=== PATIENT | male | born 1970 | race African-American/Black ===

== ENCOUNTER 2017-12-21 15:07 | Emergency (ER) | payer OTHER ==
[2017-12-21 15:15] VITALS: BMI 40.1
[2017-12-21] MEDS ORDERED: IBUPROFEN 400 MG TABLET (FP) PO ONE ×2 (16:52→16:59)
--- NOTE | 2017-12-21 16:55 | PDOC ---
History of Present Illness - General History Source: Patient Exam Limitations: No Limitations - History of Present Illness Initial Comments: 12/21/17 17:04 The patient is a 47 year old male with history of hypertension and hyperlipidemia who presents to the ED complaining of diffuse left sided pain that began today s/p mechanical fall. The patient reports he was in the attic at work today when the ceiling fell out below him and he fell a height of one story. The patient reports he fell on his left side. He complains of diffuse left sided pain that is significantly worse at the left ankle. He also complains of mild right ankle pain. He reports walking and bearing weight is difficult secondary to pain. The patient also reports hitting his head. He does complain of neck pain that is worse with turning. He denies headache, blurred vision, numbness, tingling, or focal weakness. He also complains of left shoulder pain that is worse with overhead motion. He denies any back pain. The patient denies nausea, vomiting, or diarrhea. <Allison Rodriguez - Last Filed: 12/21/17 18:12> <Yunior Allen - Last Filed: 12/21/17 19:49> - General Chief Complaint: Injury Stated Complaint: FELL Time Seen by Provider: 12/21/17 16:21 Past History <Allison Rodriguez - Last Filed: 12/21/17 18:12> - Past Medical History COPD: No HTN: Yes Hypercholesterolemia: Yes - Suicide/Smoking/Psychosocial Hx Smoking Status: No Smoking History: Never smoked Number of Cigarettes Smoked Daily: 0 Cigars Per Day: 1 Information on smoking cessation initiated: No Substance Use Type: Marijuana <Yunior Allen - Last Filed: 12/21/17 19:49> - Past Medical History Allergies/Adverse Reactions: Allergies Allergy/AdvReac Type Severity Reaction Status Date / Time No Known Allergies Allergy Verified 12/21/17 15:15 Home Medications: Ambulatory Orders No Home Medications 0 dose .ROUTE UTDICT 10/05/13 Naproxen 500 mg PO BID PRN #20 tablet 12/21/17 Review of Systems - Review of Systems Constitutional: No: Chills, Fever HEENTM: No: Recent change in vision Respiratory: No: Cough, Shortness of Breath Cardiac (ROS): No: Chest Pain ABD/GI: No: Nausea, Vomiting Musculoskeletal: Yes: Joint Pain, Muscle Pain Neurological: No: Headache, Paresthesia, Ataxia All Other Systems: Reviewed and Negative <Yunior Allen - Last Filed: 12/21/17 19:49> *Physical Exam - Vital Signs Last Vital Signs Temp Pulse Resp BP Pulse Ox 97 F L 103 H 20 138/101 99 12/21/17 15:08 12/21/17 15:08 12/21/17 15:08 12/21/17 15:08 12/21/17 15:08 - Physical Exam Comments: 12/21/17 17:58 General: Patient is alert and in no acute distress. Speech is clear and appropriate. Seated comfortably and conversant. Head: Atraumatic and nontender. HEENT: Pupils are equal round and reactive to light, extraocular movements are intact. The tympanic membranes are clear, no hemotympanum. No facial deformity/ tenderness, no septal hematoma. The oropharynx is clear. Neck: The trachea is midline, there is no stridor. There is no midline cervical spine tenderness, full range of motion of neck. Chest: Nontender, no ecchymosis or abrasions. Heart: S1-S2, regular rate and rhythm. No murmurs. Lungs: Clear to auscultation bilaterally. Symmetric chest rise. Abdomen: Soft/nontender/nondistended. Bowel sounds are normal. There is no abdominal or flank ecchymosis. Back/Pelvis: There is no midline spine tenderness or step-off. Pelvis is stable and nontender. Extremities: LLE: +Some soft tissue swelling in ther anterior medial left ankle joint space without focal bony tenderness or deformity in the ankle or foot with full ROM, neurovascularly intact distally. All other extremities: There is no extremity deformity or joint swelling. No focal bony tenderness throughout. 2+ distal pulses throughout. Neuro: Alert and oriented x3. Cranial nerves II through XII are intact. 5 out of 5 motor strength x4 extremities. [id number] is intact. No pronator drift. Gait is stable. Skin: +Superficial abrasions to the inner aspects of the upper extremities, bilaterally. Psych: Affect is appropriate. <Allison Rodriguez - Last Filed: 12/21/17 18:12> - Vital Signs Last Vital Signs Temp Pulse Resp BP Pulse Ox 97 F L 103 H 20 138/101 99 12/21/17 15:08 12/21/17 15:08 12/21/17 15:08 12/21/17 15:08 12/21/17 15:08 <Yunior Allen - Last Filed: 12/21/17 19:49> ED Treatment Course - Medications Given in the ED: ED Medications Discontinued Medications Generic Name Dose Route Start Last Admin Trade Name Freq PRN Reason Stop Dose Admin Oxycodone/Acetaminophen 1 combo 12/21/17 16:25 12/21/17 16:30 Percocet 5/325 - PO 12/21/17 16:26 1 combo ONCE ONE Administration <Allison Rodriguez - Last Filed: 12/21/17 18:12> - RADIOLOGY Radiology Studies Ordered: Category Date Time Status ANKLE & FOOT-LEFT* [RAD] Stat Radiology 12/21/17 16:52 Ordered - Medications Given in the ED: ED Medications Discontinued Medications Generic Name Dose Route Start Last Admin Trade Name Freq PRN Reason Stop Dose Admin Oxycodone/Acetaminophen 1 combo 12/21/17 16:25 12/21/17 16:30 Percocet 5/325 - PO 12/21/17 16:26 1 combo ONCE ONE Administration <Yunior Allen - Last Filed: 12/21/17 19:49> Medical Decision Making - Medical Decision Making 12/21/17 17:31 A portion of this note was documented by scribe services under my direction. I have reviewed the details of the note, within reason, and agree with the documentation with the following case summary and management plan written by me. 47-year-old healthy male presents with muscle skeletal pains after fall from [employer] ladder. Patient was at top step when the frame and ladder gave out, he fell to the ground with the steps landing on his feet then striking his left shoulder, scraping his inner arms against the attic door frame on the way down. No head injury or loss of consciousness, the patient was ambulatory after the accident complaining of some left ankle/foot pain, also complaining of some left shoulder pain with range of motion. No headache/vision change/speech change /focal deficit, no nausea/vomiting/rib or chest pain, no difficulty breathing. Trapezius pain with range of motion of his neck on extreme rotation. Vital signs normal, heart rate 80 at rest Patient is well-appearing seated in chair, smiling with eyes open, talking with his nephews and texting on his cell phone History, exam is unremarkable except for very superficial abrasions to his inner arms bilaterally, and some soft tissue swelling in the anterior medial left ankle joint space without focal bony tenderness or deformity in the ankle or foot, full range of motion and neurovascularly intact 47-year-old male with fall from about 7 foot height, landed on his feet and is well-appearing. No evidence of spine or pelvis or talus injury, likely left ankle, left shoulder, and trapezius strain. He is neurologically intact. Left shoulder and left ankle/foot x-rays Motrin and Percocet given for pain Reassess 12/21/17 18:58 On my preliminary review the x-rays, there is no acute fracture or dislocation of the left shoulder or left ankle or left foot. Feels well, Florencio wrap and Aircast applied to left ankle, agrees with discharge plan on crutches. Orthopedics follow-up as needed, understands return criteria <Yunior Allen - Last Filed: 12/21/17 19:49> *DC/Admit/Observation/Transfer - Attestations Scribe Attestion: 12/21/17 18:12 Documentation prepared by Allison Rodriguez, acting as medical technologist microbiology for Yunior Allen MD. <Allison Rodriguez - Last Filed: 12/21/17 18:12> <Yunior Allen - Last Filed: 12/21/17 19:49> Diagnosis at time of Disposition: Accidental fall from ladder Qualifiers: Encounter type: initial encounter Qualified Code(s): W11.XXXA - Fall on and from ladder, initial encounter Strain of neck muscle Qualifiers: Encounter type: initial encounter Qualified Code(s): S16.1XXA - Strain of muscle, fascia and tendon at neck level, initial encounter Left ankle sprain Qualifiers: Encounter type: initial encounter Involved ligament of ankle: unspecified ligament Qualified Code(s): S93.402A - Sprain of unspecified ligament of left ankle, initial encounter - Discharge Dispostion Disposition: HOME Condition at time of disposition: Stable - Prescriptions Prescriptions: Naproxen 500 mg PO BID PRN #20 tablet PRN Reason: Pain - Referrals Referrals: Yousuf Babin MD [Staff Physician] - - Patient Instructions Printed Discharge Instructions: DI for Ankle Sprain Additional Instructions: Activity as tolerated, weight bear as tolerated with crutches and maintain Air Cast as needed for comfort. Stay hydrated. Tylenol 1000 mg every 8 hours and/or naproxen as prescribed as needed for pain. Ice and elevate the affected areas for 20 minutes every 3-4 hours to reduce swelling. Continue your medications as previously prescribed by your physician. You should follow up with your primary doctor and an orthopedic (consider calling Dr. Babin) as soon as possible regarding today's emergency department visit. Return to the emergency department for any new or concerning symptoms, particularly persistent or worsening pain, severe swelling or discoloration, numbness. - Post Discharge Activity Forms/Work/School Notes: Back to Work
[2017-12-21 19:32] VITALS: BP 138/90; PULSE 61; TEMP 97.8
== END 2017-12-21 19:49 | disposition home or self-care (01) ==
LOC: JER 15:07
DX: S93.402A Sprain of unspecified ligament of left ankle, initial encounter (principal); S09.8XXA Other specified injuries of head, initial encounter; S16.1XXA Strain of muscle, fascia and tendon at neck level, initial encounter; W11.XXXA Fall on and from ladder, initial encounter; Y93.89 Activity, other specified; Y92.098 Other place in other non-institutional residence as the place of occurrence of the external cause; Y99.0 Civilian activity done for income or pay
CPT/HCPCS: 73030-TC-LT-FY; 73610-TC-LT-FY; 73630-TC-LT; 99283-25

== ENCOUNTER 2019-07-07 00:46 | Emergency (ER) | payer OTHER ==
[2019-07-07 00:54] VITALS: TEMP 98.1; BMI 40.6
--- NOTE | 2019-07-07 01:17 | PDOC ---
Attending Attestation - Resident Resident Name: EvaristoalexeyWendy - ED Attending Attestation I have performed the following: I have examined & evaluated the patient, The case was reviewed & discussed with the resident, I agree w/resident's findings & plan - HPI HPI: 07/07/19 01:42 see resident hpi - Physicial Exam PE: 07/07/19 01:42 agree with resident exam - Medical Decision Making 07/07/19 01:43 48-year-old male complaining of right thumb pain after slamming it in a door Plan for x-ray There is a subungual hematoma which will be released with trephination DC with outpatient hand follow-up
--- NOTE | 2019-07-07 02:51 | PDOC ---
History of Present Illness - General Chief Complaint: Injury Stated Complaint: INJURY TO THUMB Time Seen by Provider: 07/07/19 01:17 - History of Present Illness Initial Comments: Monico Stewart is a 48yo man with a PMH of HTN, HLD who presents with right thumb pain after accidentally slamming a car door onto his thumb. He states that the pain is throbbing and severe, especially when touching the thumb. He has been able to move his thumb without difficulty and has not noticed any loss of sensation. He was noted to be hypertensive on arrival but states he did not take his home medications today. He denies any chest pain, SOB, headache, vision changes, numbness/tingling, changes in urination, or altered mental status. Past History - Past Medical History Allergies/Adverse Reactions: Allergies Allergy/AdvReac Type Severity Reaction Status Date / Time No Known Allergies Allergy Verified 07/07/19 00:54 Home Medications: Ambulatory Orders No Home Medications 0 dose .ROUTE UTDICT 10/05/13 Naproxen 500 mg PO BID PRN #20 tablet 12/21/17 COPD: No HTN: Yes Hypercholesterolemia: Yes - Psycho Social/Smoking Cessation Hx Smoking Status: No Smoking History: Never smoked Have you smoked in the past 12 months: No Number of Cigarettes Smoked Daily: 0 Cigars Per Day: 1 Information on smoking cessation initiated: No Hx Alcohol Use: No Drug/Substance Use Hx: No Substance Use Type: Marijuana Review of Systems - Review of Systems Comments:: General: No fevers, no chills, no weight or appetite change, no malaise HEENT: No changes in vision, no changes in hearing, no congestion, no sore throat CV: No chest pain, no palpitations, no LE edema Pulm: No SOB, no cough, no wheezing GI: No nausea or vomiting, no change in bowel habits, no melena : No frequency, no urgency, no dysuria Musc: See HPI Skin: No rash, no lesions, no erythema Endo: No excessive thirst, no heat/cold intolerance Heme: No unusual bruising or bleeding, no swollen glands Neuro: No syncope, no numbness/tingling, no focal weakness Vasc: No claudication Psych: No recent change in mood, no SI or HI *Physical Exam - Vital Signs Last Vital Signs Temp Pulse Resp BP Pulse Ox 98.1 F 90 22 H 205/113 H 100 07/07/19 00:52 07/07/19 00:52 07/07/19 00:52 07/07/19 00:52 07/07/19 00:52 - Physical Exam General: Comfortable, no acute distress HEENT: PERRL, EOMI, MMM, voice normal, normal neck ROM, no LAD Cards: RRR, no murmur appreciated Pulm: Comfortable on room air, clear to auscultation bilaterally Ext: Rt thumb TTP over IP joint, minimal swelling, no erythema, no deformity. Rt thumb subungual hematoma. No visible injury to remainder of right hand, proximal RUE, LUE or BLE. Vasc: Extremities WWP. Palpable radial pulses bilaterally Skin: Normal color, no rashes or lesions Neuro: A&Ox3, CN grossly intact, normal speech, motor/sensory grossly intact and symmetric Psych: Mood appropriate to situation Medical Decision Making - Medical Decision Making 07/07/19 01:40 Monico Stewart is a 48yo man with a PMH of HTN, HLD who presents with right thumb pain after accidentally slamming a car door onto his thumb. - No visible deformity, no significant swelling, no erythema. Neurovascularly intact. - Subungual hematoma noted, will likely need trephanation - Xrays of rt thumb to evaluate for fracture - Percocet for pain - Asymptomatic HTN to 200's on arrival; pt states he did not take his home meds. May be additionally elevated due to pain as pt appears very uncomfortable 07/07/19 02:51 - Nail trephanation completed with 18g needle, small amount of dark blood evacuated. Pt tolerated the procedure without difficulty. - Xray w/ apparent nondisplaced fracture at the distal end of the proximal phalanx. Thumb spica placed. - Home care, return precautions, and ortho follow up discussed with pt. He agrees and understands. Will d/c home. Discussed with Dr Delicia Harrington PGY2 Discharge - Discharge Information Problems reviewed: Yes Clinical Impression/Diagnosis: Fracture of thumb, right, closed Qualifiers: Encounter type: initial encounter Phalanx: proximal Fracture alignment: nondisplaced Qualified Code(s): S62.514A - Nondisplaced fracture of proximal phalanx of right thumb, initial encounter for closed fracture Condition: Stable Disposition: HOME - Admission No - Follow up/Referral Referrals: Yousuf Babin MD [Staff Physician] - Lawrence Loza DO [Staff Physician] - - Patient Discharge Instructions Patient Printed Discharge Instructions: DI for Finger Fracture, How to Take Care of Your Splint, DI for Crush Injury Additional Instructions: Discharge Instructions: You were seen in the emergency department for a thumb injury. You were found to have a thumb fracture as well as bruising under the thumb nail. Home Care: - You had a splint placed on your thumb. Keep the splint on until you are seen by orthopedics. - Keep the splint dry. - You may use over the counter medications as needed for pain at home. 650- 1000mg acetaminophen (Tylenol) or 600mg ibuprofen (Motrin or Advil) can be used every 6-8 hours. If needed for continued pain, these medications may be alternated every 3-4 hours. For example, if you take ibuprofen at 9am, you may take acetaminophen at noon, ibuprofen at 3pm, etc. - Apply an ice pack to your thumb as often as tolerated for the next 2-3 days - If you feel your fingers becoming numb, tingling, or if they become swollen, loosen the JOZEF wrap around your splint. The sensation should stop within a few minutes. If it does not stop after loosening the splint, come back to the ED immediately. - Follow up with an orthopedic surgeon within the next 7 days. You have been given contact information for Dr Babin/Dr Cook as well as Dr Loza/Dr Stewart. - Seek immediate medical care for worsening pain, numbness in your hand that does not improve after loosening your splint, if your thumb or fingers are cool to touch, or if you have any other medical emergency. - Post Discharge Activity
[2019-07-07 03:43] VITALS: BP 164/97; PULSE 87
== END 2019-07-07 03:40 | disposition home or self-care (01) ==
LOC: JER 00:46
DX: S62.514A Nondisplaced fracture of proximal phalanx of right thumb, initial encounter for closed fracture (principal); W23.1XXA Caught, crushed, jammed, or pinched between stationary objects, initial encounter; Y93.89 Activity, other specified; Y92.410 Unspecified street and highway as the place of occurrence of the external cause; I10 Essential (primary) hypertension; E78.00 Pure hypercholesterolemia, unspecified; E78.5 Hyperlipidemia, unspecified
CPT/HCPCS: 73140-TC-RT-FY; 99282-25

== ENCOUNTER 2021-07-07 06:57 | Emergency (ER) | payer OTHER ==
[2021-07-07 07:31] VITALS: BP 161/111; BMI 43.4
[2021-07-07] MEDS ORDERED: IBUPROFEN 600 MG TABLET (FP) PO ONE (07:41)
[2021-07-07 09:08] VITALS: PULSE 86; TEMP 97.8
[2021-07-10 17:08] LABS: SARS-CoV-2 NAA Detected (Not Detected)
== END 2021-07-07 09:08 | disposition home or self-care (01) ==
LOC: JER 06:57
DX: R50.9 Fever, unspecified (principal); R51.9 Headache, unspecified; Z20.822 Contact with and (suspected) exposure to COVID-19
CPT/HCPCS: 99283-25; C9803; U0003; U0005

== ENCOUNTER 2021-11-16 10:09 | Emergency (ER) | payer OTHER ==
[2021-11-16 10:22] VITALS: BP 196/105; PULSE 82; TEMP 98.2; BMI 42.7
== END 2021-11-16 12:03 | disposition home or self-care (01) ==
LOC: JER 10:09 → JERFT 10:09
DX: H53.141 Visual discomfort, right eye (principal); T15.01XA Foreign body in cornea, right eye, initial encounter
CPT/HCPCS: 99281-25